=== PATIENT | male | born 1965 | race Caucasian/White ===

== ENCOUNTER 2018-01-13 14:54 | Emergency (ER) | payer OTHER ==
[~2018-01-13] VITALS: Ht 175.3 cm; Wt 64.5 kg
[2018-01-13 15:45] VITALS: BP 138/73; PULSE 75; RESP 18; TEMP 98.8; O2SAT 98
--- NOTE | 2018-01-13 16:06 | RADRPT ---
EXAM DATE/TIME: 01/13/2018 16:01 [facility] COMPARISON: No previous studies available for comparison. INDICATIONS : Penile and pelvic pain after falling and straddling wood. MEDICAL HISTORY : None. SURGICAL HISTORY : None. ENCOUNTER: Initial ACUITY: 1 day PAIN SCORE: 10/10 LOCATION: middle pelvis. FINDINGS: A single frontal view of the pelvis demonstrates no evidence of fracture. The bony pelvic ring is in tact. Bony mineralization is normal. Densely calcified intramedullary lesion in the proximal right f emur likely reflecting a bone island. The soft tissues are intact. CONCLUSION: 1. No acute fracture or dislocation. Ford Tubbs MD on January 13, 2018 at 16:03 Board Certified Radiologist. This report was verified electronically.
--- NOTE | 2018-01-13 17:52 | PD ---
HPI Chief Complaint: Fall Time Seen by Provider: 17:45 Travel History International Travel<30 days: No Contact w/Intl Traveler<30days: No Traveled to known affect area: No History of Present Illness HPI 52-year-old male patient presents to the ER today, states that he had tripped and fallen, straddled a 4 x 4, and is now having bleeding from his urethra and is having discomfort in his testicle area. He denies any other issues or injuries. Modifying Factors: None Associated Signs & Symptoms: Fall on testicle, bleeding from urethra, saddle area pain Risk Factors: None PFSH Social History Tobacco Use: No Allergies-Medications (Allergen,Severity, Reaction): Coded Allergies: No Known Allergies (Verified Allergy, Unknown, 01/13/18) Reported Meds & Prescriptions Reported Meds & Active Scripts Active Reported Gabapentin 300 Mg Cap 300 Mg PO HS Review of Systems Except as stated in HPI: all other systems reviewed are Neg Physical Exam Narrative GENERAL: Well-developed middle-age male patient currently in mild distress. Awake and oriented 3. SKIN: Focused skin assessment warm/dry. HEAD: Atraumatic. Normocephalic. EYES: Pupils equal and round. No scleral icterus. No injection or drainage. ENT: No nasal bleeding or discharge. Mucous membranes pink and moist. NECK: Trachea midline. No JVD. Supple. CARDIOVASCULAR: Regular rate and rhythm. No murmur appreciated. RESPIRATORY: No accessory muscle use. Clear to auscultation. Breath sounds equal bilaterally. GASTROINTESTINAL: Abdomen soft, non-tender, nondistended. Hepatic and splenic margins not palpable. GENITOURINARY: Circumcised. Testes descended bilaterally without evidence of rotation. No lesions or erythema. Blood notable at the urethral meatus. There is notable fullness and ecchymosis over the straddle area. MUSCULOSKELETAL: No obvious deformities. No clubbing. No cyanosis. No edema. NEUROLOGICAL: Awake and alert. No obvious cranial nerve deficits. Motor grossly within normal limits. Normal speech. PSYCHIATRIC: Appropriate mood and affect; insight and judgment normal. Data Data Last Documented VS Vital Signs Date Time Temp Pulse Resp B/P (MAP) Pulse Ox O2 Delivery O2 Flow Rate FiO2 01/13/18 15:45 98.8 75 18 138/73 (94) 98 Orders Orders Complete Blood Count With Diff (01/13/18 15:48) Comprehensive Metabolic Panel (01/13/18 15:48) Prothrombin Time / Inr (Pt) (01/13/18 15:48) Act Partial Throm Time (Ptt) (01/13/18 15:48) Urinalysis - C+S If Indicated (01/13/18 15:48) Pelvis, Ap Only (Routine) (01/13/18 ) Us Testicles W Doppler (01/13/18 17:45) Urine Culture (01/13/18 19:56) Morphine Inj (Morphine Inj) (01/13/18 21:00) Ondansetron Inj (Zofran Inj) (01/13/18 21:00) Ed Discharge Order (01/13/18 21:01) Urinary Catheter Insert/Apply (01/13/18 21:04) Mandatory Outpatient Referral (01/13/18 21:04) Labs Laboratory Tests Test 01/13/18 17:55 01/13/18 19:56 White Blood Count 12.1 TH/MM3 Red Blood Count 4.41 MIL/MM3 Hemoglobin 13.4 GM/DL Hematocrit 40.1 % Mean Corpuscular Volume 90.8 FL Mean Corpuscular Hemoglobin 30.4 PG Mean Corpuscular Hemoglobin Concent 33.5 % Red Cell Distribution Width 13.3 % Platelet Count 341 TH/MM3 Mean Platelet Volume 7.7 FL Neutrophils (%) (Auto) 72.0 % Lymphocytes (%) (Auto) 17.3 % Monocytes (%) (Auto) 8.5 % Eosinophils (%) (Auto) 1.6 % Basophils (%) (Auto) 0.6 % Neutrophils # (Auto) 8.7 TH/MM3 Lymphocytes # (Auto) 2.1 TH/MM3 Monocytes # (Auto) 1.0 TH/MM3 Eosinophils # (Auto) 0.2 TH/MM3 Basophils # (Auto) 0.1 TH/MM3 CBC Comment DIFF FINAL Differential Comment Prothrombin Time 10.9 SEC Prothromb Time International Ratio 1.1 RATIO Activated Partial Thromboplast Time 26.1 SEC Blood Urea Nitrogen 11 MG/DL Creatinine 0.89 MG/DL Random Glucose 84 MG/DL Total Protein 7.9 GM/DL Albumin 3.8 GM/DL Calcium Level 8.4 MG/DL Alkaline Phosphatase 74 U/L Aspartate Amino Transf (AST/SGOT) 24 U/L Alanine Aminotransferase (ALT/SGPT) 22 U/L Total Bilirubin 0.4 MG/DL Sodium Level 140 MEQ/L Potassium Level 3.8 MEQ/L Chloride Level 106 MEQ/L Carbon Dioxide Level 27.2 MEQ/L Anion Gap 7 MEQ/L Estimat Glomerular Filtration Rate 89 ML/MIN Urine Color DARK-RED Urine Turbidity CLOUDY Urine pH 6.5 Urine Specific [place] 1.023 Urine Protein 100 mg/dL Urine Glucose (UA) NEG mg/dL Urine Ketones 40 mg/dL Urine Occult Blood MOD Urine Nitrite POS Urine Bilirubin LARGE Urine Urobilinogen 8.0 MG/DL Urine Leukocyte Esterase TRACE Urine RBC /hpf Urine WBC /hpf Microscopic Urinalysis Comment CULTURE INDICATED MDM Medical Decision Making Medical Screen Exam Complete: Yes Emergency Medical Condition: Yes Medical Record Reviewed: Yes Interpretation(s) Laboratory Tests Test 01/13/18 17:55 01/13/18 19:56 White Blood Count 12.1 TH/MM3 (4.0-11.0) Red Blood Count 4.41 MIL/MM3 (4.50-5.90) Neutrophils (%) (Auto) 72.0 % (16.0-70.0) Monocytes (%) (Auto) 8.5 % (0.0-8.0) Neutrophils # (Auto) 8.7 TH/MM3 (1.8-7.7) Monocytes # (Auto) 1.0 TH/MM3 (0-0.9) Calcium Level 8.4 MG/DL (8.5-10.1) Urine Color DARK-RED (YELLW/STRAW) Urine Turbidity CLOUDY (CLEAR) Urine Protein 100 mg/dL (NEG-TRACE) Urine Ketones 40 mg/dL (NEG) Urine Occult Blood MOD (NEG) Urine Nitrite POS (NEG) Urine Bilirubin LARGE (NEG) Urine Urobilinogen 8.0 MG/DL (LESS THAN Urine Leukocyte Esterase TRACE (NEG) Last 24 hours Impressions Scrotum Ultrasound 01/13/18 1745 Signed Impressions: Service Date/Time: Saturday, January 13, 2018 18:33 - CONCLUSION: Normal examination. David Lugo MD Pelvis X-Ray 01/13/18 0000 Signed Impressions: Service Date/Time: Saturday, January 13, 2018 16:01 - CONCLUSION: 1. No acute fracture or dislocation. Ford Tubbs MD Differential Diagnosis Testicular injuries versus penile injuries versus urethral injuries versus pelvic fractures Narrative Course Testicular ultrasound did not show any signs of testicular injury. Due to the bleeding and possible urethral and penile injuries, case was discussed with Dr. Gordon who saw the patient in the ER and did a catheterization on the patient. After the procedure, he states that the urine was clear and he states that the patient will need further evaluation with urology, at this point considering patient did not have any other injuries, the plan per discussion with urology would be to release him and have him follow-up in 1 week in their clinic. We will maintain the Foster catheter and give the patient and leg bag. We will give him antibiotics and oxybutynin. Return for any worsening in pain or new issues as needed. The plan has been discussed with the patient and he states understanding. Diagnosis Primary Impression: Urethral straddle injury Referrals: Aubrey Gordon MD 1 week Med/Other Pt SpecificInfo: Prescription(s) given Scripts Ciprofloxacin (Cipro) 500 Mg Tab 500 MG PO BID for Infection for 3 Days, #6 TAB 0 Refills Prov: Yaima Park MD 01/13/18 Oxybutynin (Ditropan) 5 Mg Tab 5 MG PO Q8HR for Urinary Symptom Managemen, #21 TAB 0 Refills Prov: Yaima Park MD 01/13/18 Disposition: 01 DISCHARGE HOME Condition: Stable Yaima Park MD Jan 13, 2018 17:51
[2018-01-13] MEDS ORDERED: GABA300C5 PO (17:53)
[2018-01-13 18:14] LABS: AUTOMATED NEUTROPHIL # 8.7 TH/MM3 (1.8-7.7); BASOPHIL # 0.1 TH/MM3 (0-0.2); BASOPHIL % 0.6 % (0.0-2.0); EOSINOPHIL # 0.2 TH/MM3 (0-0.4); EOSINOPHIL % 1.6 % (0.0-4.0); HEMATOCRIT 40.1 % (39.0-51.0); HEMOGLOBIN 13.4 GM/DL (13.0-17.0); LYMPH % 17.3 % (9.0-44.0); LYMPHOCYTE # 2.1 TH/MM3 (1.0-4.8); MEAN CELL VOLUME 90.8 FL (80.0-100.0); MEAN CORPUSCULAR HEMOGLOBIN 30.4 PG (27.0-34.0); MEAN CORPUSCULAR HGB CONC 33.5 % (32.0-36.0); MEAN PLATELET VOLUME 7.7 FL (7.0-11.0); MONO % 8.5 % (0.0-8.0); PLATELET COUNT 341 TH/MM3 (150-450); RED BLOOD COUNT 4.41 MIL/MM3 (4.50-5.90); RED CELL DISTRIBUTION WIDTH 13.3 % (11.6-17.2); WHITE BLOOD COUNT 12.1 TH/MM3 (4.0-11.0)
[2018-01-13 18:20] LABS: INTERNATIONAL NORMALIZED RATIO 1.1 RATIO; PROTHROMBIN TIME - PATIENT 10.9 SEC (9.8-11.6)
[2018-01-13 18:35] LABS: ALBUMIN 3.8 GM/DL (3.4-5.0); AST (GOT) 24 U/L (15-37); BICARBONATE 27.2 MEQ/L (21.0-32.0); BLOOD UREA NITROGEN 11 MG/DL (7-18); CALCIUM 8.4 MG/DL (8.5-10.1); CHLORIDE 106 MEQ/L (98-107); CREATININE 0.89 MG/DL (0.60-1.30); GLOMERULAR FILTRATION RATE 89 ML/MIN (>89); GLUCOSE,RANDOM 84 MG/DL (74-106); SODIUM (NA) 140 MEQ/L (136-145)
[2018-01-13 18:38] LABS: ALKALINE PHOSPHATASE 74 U/L (45-117); ALT (GPT) 22 U/L (12-78); TOTAL BILIRUBIN ADULT 0.4 MG/DL (0.2-1.0); TOTAL PROTEIN 7.9 GM/DL (6.4-8.2)
--- NOTE | 2018-01-13 19:23 | RADRPT ---
EXAM DATE/TIME: 01/13/2018 18:33 [facility] COMPARISON: No previous studies available for comparison. INDICATIONS : Testicular pain. MEDICAL HISTORY : None. SURGICAL HISTORY : None. ENCOUNTER: Initial ACUITY: 1 day PAIN SCORE: 10/10 LOCATION: Bilateral testicles. MEASUREMENTS: RIGHT TESTICLE: 5.0 x 2.8 x 2.1cm LEFT TESTICLE: 4.2 x 2.7 x 2.0cm FINDINGS: RIGHT TESTICLE: Homogeneous echotexture without intra or extratesticular mass. Blood flow is symmetric and within no rmal limits. No hydrocele or varicocele. Epididymis is within normal limits. LEFT TESTICLE: Homogeneous echotexture without intra or extratesticular mass. Blood flow is symmetric and within no rmal limits. No hydrocele or varicocele. Epididymis is within normal limits. SCROTUM: Within normal limits. CONCLUSION: Normal examination. David Lugo MD on January 13, 2018 at 19:20 Board Certified Radiologist. This report was verified electronically.
[2018-01-13 20:28] LABS: BILIRUBIN, URINE LARGE (NEG); BLOOD, URINE MOD (NEG); GLUCOSE,URINE NEG (NEG); KETONE, URINE 40 mg/dL (NEG); NITRITE,URINE POS (NEG); PH, URINE 6.5 (5.0-8.5); URINE LEUKOCYTE ESTERASE TRACE (NEG)
[2018-01-13 20:30] LABS: URINE COLOR DARK-RED (YELLW/STRAW)
[2018-01-13] MEDS ORDERED: MORPHINE SULFATE 2 MG/ML SYRINGE IV PUSH ONE (21:00)
[2018-01-13] MEDS ORDERED: ONDANSETRON HCL 4 MG/2 ML VIAL IV PUSH ONE (21:00)
[2018-01-13] MEDS ORDERED: OXYB5TAB8 PO (21:06)
[2018-01-13] MEDS ORDERED: CIPR-9 PO (21:06)
--- NOTE | 2018-01-13 21:15 | PD.CONS ---
[facility] Service Urology Consult Requested By Reason for Consult Urethral Injury Primary Care Physician Unknown Diagnosis: History of Present Illness 52yo male with no urological history seen in consultation for straddle injury with concern for urethral injury. Patient works in construction. Around 1pm today he fell onto a wooden beam with a straddle injury. He had significant pain at the time with blood noted at the urethral meatus. He has not voided since injury. He has never had any issues voiding prior to injury. No fevers. Scrotal U/S did not identify any testicular injury, no pelvic fracture on Xray.. Review of Systems ROS Limitations: Clinical Condition Constitutional: DENIES: Fever Eyes: DENIES: Blurred vision Ears, nose, mouth, throat: DENIES: Hearing loss Respiratory: DENIES: Apneas, Cough Cardiovascular: DENIES: Chest pain, Palpitations Gastrointestinal: DENIES: Abdominal pain, Nausea, Vomiting Genitourinary: COMPLAINS OF: Hematuria Hematologic/lymphatic: COMPLAINS OF: Bruising Neurologic: DENIES: Headache Psychiatric: DENIES: Anxiety Except as stated in HPI: all other systems reviewed are Neg Past Family Social History Past Medical History No past medical history Past Surgical History No previous surgeries Reported Medications Reported Meds & Active Scripts Active Cipro (Ciprofloxacin HCl) 500 Mg Tab 500 Mg PO BID 3 Days Ditropan (Oxybutynin Chloride) 5 Mg Tab 5 Mg PO Q8HR Reported Gabapentin 300 Mg Cap 300 Mg PO HS Allergies: Coded Allergies: No Known Allergies (Verified Allergy, Unknown, 01/13/18) Family History Family history reviewed and noncontributory to present illness Social History Nonsmoker construction coordinator Physical Exam Vital Signs Date Time Temp Pulse Resp B/P (MAP) Pulse Ox O2 Delivery O2 Flow Rate FiO2 01/13/18 15:45 98.8 75 18 138/73 (94) 98 Physical Exam GENERAL: This is a well-nourished, well-developed patient, in no apparent distress. SKIN: No rashes, ecchymoses or lesions. Cool and dry. HEAD: Atraumatic. Normocephalic. EYES: Extraocular motions intact. No scleral icterus. No injection or drainage. ENT: Nose without bleeding, purulent drainage. Airway patent. NECK: Trachea midline. No JVD or lymphadenopathy. CARDIOVASCULAR: Normal pulse RESPIRATORY: nonlabored GASTROINTESTINAL: Abdomen soft, non-tender, nondistended. GENITOURINARY: Uncircumcised phallus with blood noted at the meatus. Bilateral descended testis, slightly tender to palpation, no masses. Perineal ecchymosis and swelling noted, tender to palpation MUSCULOSKELETAL: Extremities without clubbing, cyanosis, or edema. NEUROLOGICAL: Awake and alert. Motor and sensory grossly within normal limits. Normal speech. Lab results reviewed: Yes Laboratory Tests Test 01/13/18 17:55 01/13/18 19:56 White Blood Count 12.1 Red Blood Count 4.41 Hemoglobin 13.4 Hematocrit 40.1 Mean Corpuscular Volume 90.8 Mean Corpuscular Hemoglobin 30.4 Mean Corpuscular Hemoglobin Concent 33.5 Red Cell Distribution Width 13.3 Platelet Count 341 Mean Platelet Volume 7.7 Neutrophils (%) (Auto) 72.0 Lymphocytes (%) (Auto) 17.3 Monocytes (%) (Auto) 8.5 Eosinophils (%) (Auto) 1.6 Basophils (%) (Auto) 0.6 Neutrophils # (Auto) 8.7 Lymphocytes # (Auto) 2.1 Monocytes # (Auto) 1.0 Eosinophils # (Auto) 0.2 Basophils # (Auto) 0.1 CBC Comment DIFF FINAL Differential Comment Prothrombin Time 10.9 Prothromb Time International Ratio 1.1 Activated Partial Thromboplast Time 26.1 Blood Urea Nitrogen 11 Creatinine 0.89 Random Glucose 84 Total Protein 7.9 Albumin 3.8 Calcium Level 8.4 Alkaline Phosphatase 74 Aspartate Amino Transf (AST/SGOT) 24 Alanine Aminotransferase (ALT/SGPT) 22 Total Bilirubin 0.4 Sodium Level 140 Potassium Level 3.8 Chloride Level 106 Carbon Dioxide Level 27.2 Anion Gap 7 Estimat Glomerular Filtration Rate 89 Urine Color DARK-RED Urine Turbidity CLOUDY Urine pH 6.5 Urine Specific [place] 1.023 Urine Protein 100 Urine Glucose (UA) NEG Urine Ketones 40 Urine Occult Blood MOD Urine Nitrite POS Urine Bilirubin LARGE Urine Urobilinogen 8.0 Urine Leukocyte Esterase TRACE Urine RBC Urine WBC Microscopic Urinalysis Comment CULTURE INDICATED Date/Time Source Procedure Growth Status 01/13/18 19:56 Urine Clean Catch Urine Culture Pending Received Result Diagram: 01/13/[id number] Personally reviewed images: Yes Imaging Last Impressions Scrotum Ultrasound 01/13/181744 Signed Impressions: Service Date/Time: Saturday, January 13, 2018 18:33 - CONCLUSION: Normal examination. David Lugo MD Pelvis X-Ray 01/13/18 0000 Signed Impressions: Service Date/Time: Saturday, January 13, 2018 16:01 - CONCLUSION: 1. No acute fracture or dislocation. Ford Tubbs MD Assessment and Plan Problem List: (1) Urethral straddle injury ICD Code: S37.39XA - Other injury of urethra, initial encounter Status: Acute Assessment and Plan 52yo male with urethral straddle injury -Successful placement of a 16Fr coude catheter. Urine initially bloody, however turned clear. -Foster catheter is to remain in place for 7-10 days -Patient to followup in Urology clinic in 1 week with pericatheter RUG to evaluate the integrity of the urethra -No further urological intervention indicated at this time -Patient is clear for discharge from a Urology standpoint with short course of antibiotics -Please call with questions Aubrey Gordon MD Jan 13, 2018 21:15
== END 2018-01-13 21:49 | disposition home or self-care (01) ==
LOC: NEPD 14:54
DX: S37.39XA Other injury of urethra, initial encounter (principal); N50.819 Testicular pain, unspecified; W01.0XXA Fall on same level from slipping, tripping and stumbling without subsequent striking against object, initial encounter; Y93.H3 Activity, building and construction
CPT/HCPCS: 51702; 72170; 76870; 80053; 81001; 85025; 85610; 85730; 87086; 93975; 96374; 99285; J2270